=== PATIENT | female | born 1960 | race Caucasian/White ===

== ENCOUNTER 2018-02-28 01:24 | Outpatient (CLI) | payer BC, SELFPAY ==
--- NOTE | 2018-02-28 09:41 | DI.CT_ITS ---
SYMPTOMS/DIAGNOSIS: PRIMARY OSTEOARTHRITIS, M19.079, ARTHRITIS OF SUBTALAR JOINT LEFT ANKLE AND FOOT: The study was carried out according to the usual protocol. Soft tissue swelling is noted about the ankle. The mortise joint is well maintained with minimal degenerative changes. There is mild DJD involving the talonavicular and calcaneocuboid joints and metatarsal joints. Note is made of what appears to represent flexion deformities of the 2nd, 3rd and 4th toes. There is no evidence of a fracture or dislocation.
== END 2018-02-28 01:44 ==
PROVIDERS: PCP Family Medicine; Visit Provider Orthopaedic Surgery
DX: M19.072 Primary osteoarthritis, left ankle and foot (principal); M79.89 Other specified soft tissue disorders; M21.272 Flexion deformity, left ankle and toes
CPT/HCPCS: 73700

== ENCOUNTER 2018-11-08 12:19 | Outpatient (CLI) | payer BC, SELFPAY ==
[2018-11-08 12:57] LABS: HCT 42.1 % (36.0-46.0); HGB 13.9 g/dL (12.0-15.5); Mean Corpuscular Hemoglobin 32.1 pg (27.0-33.0); Mean Corpuscular Volume 97.2 fL (80-95); Mean Platelet Volume 10.3 fL (8.0-11.0); Platelet Count 275 x1000/uL (130-400); RBC 4.33 m/cumm (4.00-5.20); RBC Distribution Width 12.1 % (11.7-14.6)
[2018-11-08 13:41] LABS: ALT 86 U/L (12-78); AST 46 U/L (15-37); Albumin 4.2 g/dL (3.4-5.0); Alkaline Phosphatase 112 U/L (46-116); Anion Gap 11.4 mmol/L (3-11); BUN 10 mg/dL (7-18); Bilirubin, Total 0.5 mg/dL (0.2-1.0); CO2 25.6 mmol/L (21.0-32.0); Calcium 9.4 mg/dL (8.5-10.1); Chloride 103 mmol/L (98-107); Glucose 89 mg/dL (70-100); Potassium 4.1 mmol/L (3.5-5.1); Sodium 140 mmol/L (136-145); Total Protein 7.8 g/dL (6.4-8.2)
== END 2018-11-08 12:39 ==
PROVIDERS: PCP Family Medicine; Visit Provider Family Medicine
DX: K21.9 Gastro-esophageal reflux disease without esophagitis (principal); K76.0 Fatty (change of) liver, not elsewhere classified; Z01.818 Encounter for other preprocedural examination
CPT/HCPCS: 36415; 80053; 85027

== ENCOUNTER 2021-01-02 16:26 | Outpatient (REF) | payer MEDICAID, SELFPAY ==
[2021-01-02 19:35] LABS: Hemoglobin A1C 5.3 % (<5.7)
[2021-01-02 19:39] LABS: Calculated LDL 115 mg/dL (<100); Cholesterol 221 mg/dL (<200); HDL Cholesterol 89 mg/dL (40-60); Triglyceride 88 mg/dL (<150)
== END 2021-01-02 16:27 | disposition home or self-care (01) ==
LOC: LBN 16:26
PROVIDERS: PCP Nurse Practitioner Family; Visit Provider Nurse Practitioner Family
DX: Z13.220 Encounter for screening for lipoid disorders (principal); Z13.1 Encounter for screening for diabetes mellitus
CPT/HCPCS: 80061; 83036

== ENCOUNTER 2021-03-09 13:03 | Outpatient (REF) | payer MEDICAID, SELFPAY ==
--- OUTSIDE RECORDS SUMMARY | 2021-03-09 13:11 | XMS_ITS | Encounter Summary ---
:1960 Author Care Team Providers Name Role Phone Ozzie THORNTON Primary Care Provider [phone] Amanda Navarro MD General Surgeon [phone] Reason for Visit None recorded. Assessment and Plan 1. Gynecologic examination Normal pharmacy tech exam, essentially healthy wom an. Good diet, active job. No Pap needed this year. Mammo ordered. 2. Screening mammography ? MAMMO, screening, tomosynt hesis, bilateral - If indicated may do any of the following: ABUS R92.2, Z12.31. US Br east ABUS Bilat; = 08287 US Breast BILAT LIMITED; US Breast LT LIMITED; US Breast RT LIMITED 01393 MG Mammo ESTEFANI ADD VIEW BILAT = 43336 & 27120 (BIRADS Cat 0) MG Mammo Diagnostic Dig BILAT = 79947 MG Mammo ESTEFANI ADD VIEW LT = 39655 & 77859 (BIRADS Cat 0) MG Mammo ESTEFANI ADD VIEW RT = 52038 & 41199 (BIRADS Cat 0) MG Mammo Diagnostic Digital LT = 20294 MG Mammo Diagnostic Digital RT = 61492 US Breast BILAT COMPL ETE; US Breast LT COMPLETE; US Breast RT COMPLETE = 58892 Discussion Note: None recorded.Patient educational handouts: No information available. Plan of Care Reminders Provider Appointments e 30 on or around Kaley Daley 01/13/2022 YAW Saini ? e 30 01/15/2022 Kaley Rojas ae 3:00PM YAW Saini Lab None ? ? recorded. Referral None ? ? recorded. Procedures None ? ? recorded. Surgeries None ? ? recorded. Imaging MAMMO, 01/13/2021 [facility]iol[facility] gy Tomosynthesis, (Internal) Bilateral Medications Name Start Date ? ? lisinopril 10 mg tablet ? Take 1 tablet every day by oral route. venlafaxine 75 mg tablet ? Take 1 tablet every day by oral route. Medications Administered None recorded. Vitals Weight Blood Pressure 151.6 lbs 128/74 mm[Hg] Results Lab Results None recorded. Allergies Code Code System Name Reaction Severity Onset 855597 RxNorm IMODIUM A-D ? ? ? Iodinated ? ? ? Contrast Media Problems Name Status Onset Date Source ? Basal Cell Carcinoma of Face Active ? His tory Uterine Leiomyoma Active ? History Disorder of Hematopoietic Structure Active ? History Generalized Anxiety Disorder Active ? His tory Insomnia Active ? History Hypertensive Disorder Active ? History Esophagitis Active ? History Diaphragmatic Hernia Active ? History Disorder of Kidney And/or Ureter Active ? History Granuloma Annulare Active ? History Arthropathy Active ? History Malaise and Fatigue Active ? History Generalized Hyperhidrosis Active ? Histor y History of Psychiatric Disorder Active ? History Menopause Present Active ? History Procedures Date Name Performed by ? 02/24/2021 Colonoscopy Information not avai lable Notes: colon polyps, external hemorrh oids, mild diverticulosis. 12/07/2018 Orthopedic Surgery Information not avai lable Notes: Left foot sugery repeat 10/24/2017 Orthopedic Surgery Information not avai lable Notes: Left foot surgery 05/16/2000 Cholecystectomy Information not avai lable 05/16/1984 Tubal Ligation Information not avai lable 05/16/1969 Tonsillectomy Information not avai lable 01/13/2021 MAMMO, Screening, Tomosynthesis, [facility] Radiology (Internal) Bilateral [address] [place] [address] (Work Place) Vaccine List Vaccine Type COVID-19, mRNA, LNP-S, PF, 100 mcg/0.5 m L dose 09/06/2020 10/04/2020 Tdap 03/13/2013?0.5 mL Social History Tobacco Smoking Status Former Smoker Notes: Quit What type of diet are you REGULAR following? Do you have difficulty walking or N climbing stairs? Are you able to walk? YESWOREST Are you currently employed? Y Are you able to care for yourself? Y What is your code status? 0 Who is your employer? [employer] Is blood transfusion acceptable in Y an emergency? Are you currently sexually active N with anyone who has traveled (within the last 12 weeks) to a Zika-affected area? What is your relationship status? What is your level of alcohol Moderate Notes: Wine 6-8 glasses consumption? per week Have you been to an area known to N be high risk for COVID-19? Current Method of Control Natural methods Notes: Tubal Ligation Are you deaf or do you have serious N difficulty hearing? Do you or have you ever used any N other forms of tobacco or nicotine? Drug Use N Have you recently or are you N planning to travel to an area with Zika virus? Do you have difficulty dressing or N bathing? Are you blind or do you have N difficulty seeing? Do you have transportation N difficulties? Marital Status In the 14 days before symptom N onset, have you had close contact with a person who is under investigation for COVID-19 while that person was ill? Do you have difficulty doing N errands alone? Do you reside in or have you N traveled to an area where Ebola virus transmission is active? What was the date of your most 01/13/2021 recent tobacco screening? Do you have an advanced directive? Y Do you use any illicit or N recreational drugs? In the 14 days before symptom N onset, have you had close contact with a laboratory-confirmed COVID-19 while that case was ill? Which of your hands is dominant? Right Do you have difficulty N concentrating, remembering or making decisions? What is your level of caffeine Moderate Notes: 1 cup of coffee consumption? daily Have you recently traveled abroad? 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 Past Encounters 01/13/2021 Gynecologic Examination; Screening Mammo graphy Kaley Saini, PARKERM: [address] [place] [id number], Ph. 12/18/2020 Joint Pain; Enthesopathy; Abnormal Gait; Pain in Left Foot; Stiffness of Left Ankle; Stiffness of Joint of Left Foot Marzena Marquis, PT: [address] [facility] [facility] [address] [address], [address], [place] [address], Ph. History of Present Illness ? Annual Recycling Attendant Post-Menopausal Reported By: Patient Genitourinary symptoms: Menopausal Symptoms: no peter pausal symptoms, normal vaginal lubrication; occasional nigh t sweats. Vaginal Bleeding: history of menopause having occurred, no history of post menopausal bleeding. Urinary Symptoms: no hematuria, no incontinence, no nocturia, n o urinary frequency Breast symptoms: Breast: no breast lump, no n ipple discharge, no breast pain Psychological symptoms: Sexual Complaints: no sexual complaints. Psychological Symptoms: no depression, anx iety Review of Systems: ROS as noted in the HPI Review of Systems None recorded. Physical Exam ? Annual Recycling Attendant Exam Reported By: Patient Telesales Team Leader: Telesales Team Leader: offered and decli lyla Constitutional: General Appearance: healthy- appearing, well-nourished, well-developed Psychiatric: Orientation: to time, to gee ce, to person. Mood and Affect: active and alert, normal mood, norm al affect Skin: Appearance: no rashes, no le sions Neck: Neck: supple, no masses. Thy roid: no enlargement, non-tender Lungs: Respiratory Effort: no inter costal retractions, no accessory muscle usage. Auscultation: clear t o auscultation Cardiovascular: Auscultation: RRR, no murmur . Peripheral Vascular: no LLE edema, no RLE edema Abdomen: Auscultation/Inspection/Palp ation: normal bowel sounds, soft, no tenderness, no CVA tendernes s Breast: Inspection/Palpation: no ski n changes, no abnormal secretions, nipple appearance normal, no tenderness, no distinct masses Female Genitalia: Vulva: no masses, no atrophy , no lesions. Vagina: no tenderness. Cervix: grossly normal, no d ischarge, no cervical motion tenderness. Uterus: normal s ize, normal shape, midline, mobile, non-tender. Adnexa/Parametri a: no adnexal tenderness, no ovarian mass Lymph Nodes: Palpation: non tender subman dibular nodes
--- OUTSIDE RECORDS SUMMARY | 2021-03-09 13:11 | XMS_ITS | Encounter Summary ---
:1960 Author Care Team Providers Name Role Phone Ozzie THORNTON Primary Care Provider [phone] Amanda Navarro MD General Surgeon [phone] Reason for Visit diarrhea Here to consult on diarrhea. Assessment and Plan 1. Screening for malignant neopl asm of colon 60 female who is due for scree stephanie colonoscopy based on her history of a tubulovillous adenoma 4 years ago. We wi ll go ahead and set her up for this. We discussed the procedure in detail. We di scussed the risks of bleeding from biopsy sites, perforation of the colon, missing small lesions, amongst other things. She expressed understanding. She signed info rmed consent here in the office. We will get her scheduled for screening colonoscopy at her earliest convenience. 2. Diarrhea Patient is also had a signific ant change in bowel habits and has persistent diarrhea for an number of months now. We will go ahead and do colon mucosal biopsies throughout the colon at the time of her colonoscopy. We may find she has microscopic colitis, which can be treated with some oral medication. If not, we talked about adding fiber to her diet and possibly us ing cholestyramine. We will see what the pathology shows. Thank you for the consu ltation. Discussion Note: None recorded.Patient educational handouts: No information available. Plan of Care Reminders Provider Appointments e 30 on or around Kaley Daley 01/13/2022 YAW Saini ? e 30 01/15/2022 Kaley Rojas ae 3:00PM YAW Saini Lab None ? ? recorded. Referral None ? ? recorded. Procedures None ? ? recorded. Surgeries None ? ? recorded. Imaging None ? ? recorded. Medications Name Start Date ? ? lisinopril 10 mg tablet ? Take 1 tablet every day by oral route. venlafaxine 75 mg tablet ? Take 1 tablet every day by oral route. Medications Administered None recorded. Vitals Height Weight BMI Blood Pressure 4 ft 11.5 in 151 lbs 30 kg/m2 110/82 mm[Hg] Results Lab Results None recorded. Allergies Code Code System Name Reaction Severity Onset 923566 RxNorm IMODIUM A-D ? ? ? Iodinated [...] not avai lable 01/13/2021 MAMMO, Screening, Tomosynthesis, [facility] Radiology (Internal) Bilateral [address] [place] [address] (Work Place) Vaccine List Vaccine Type COVID-19, [...] to N be high risk for COVID-19? Are you deaf or do you have serious N difficulty hearing? Current Method of Control Natural methods Notes: Tubal Ligation Do you or have you ever used any N other forms of tobacco or nicotine? Drug Use N Have you recently or are you N planning to travel to an area with Zika virus? Do you have difficulty dressing or N bathing? Are you blind or do you have N difficulty seeing? Do you have transportation N difficulties? Do you have difficulty doing N errands alone? In the 14 days before symptom N onset, have you had close contact with a person who is under investigation for COVID-19 while that person was ill? Marital Status What was the date of your most 01/13/2021 recent tobacco screening? Do you reside in or have you N traveled to an area where Ebola virus transmission is active? Do you have an advanced directive? Y [...] traveled abroad? 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 Past Encounters 02/12/2021 Screening for Malignant Neoplasm of [place] n; Diarrhea Amanda Navarro MD: [address] [place] [address], Ph. 01/13/2021 Gynecologic Examination; Screening Mammo devy Kaley Saini CNM: [address] [place] [address], Ph. History of Present Illness Note: Patient is a 60-year-old woman who is sent over by her primary care provider. She used to have 1 formed bowel movement most mornings. About 4 months ago she had fairly rapid onset of diarrhea. Herstools have become mostly liquid. She sometimes goes as much as 4 or 5 times in a day. Initially the diarrhea typically occurred after eating. Now it is less predictable. She has urgency and has had some episodes of incontinence. She has had some time where the symptoms have improved a bit but they definitely persist. She does have a bit of nausea but no significant vomiting. She denies abdominal pain. She denies loss of appetite or unintentional weight loss. She denies blood in the stool on the toilet paper when she wipes. Her last colonoscopy was in 2017. At the time she had a tubulovillous adenoma and she is indicated for repeat now. Of note she has tried to use Imodium but had a pretty significant systemic reaction on 2 separate occasions giving her whole body aches, chest pain, weakness, fatigue, and chills. She did have stool studies done by her primary care provider. These were all negative.Review of Systems: ROS as noted in the HPI Review of Systems None recorded. Physical Exam ? [facility] General Surgery Exam Reported By: Patient Constitutional: General Appearance: healthy- appearing, overweight. Level of Distress: no acute distress. Ambulation: ambulating normally Head: Head: normocephalic, atrauma tic Neck: Neck: supple, no masses Cardiovascular: Heart Auscultation: regular rate and rhythm, no murmurs Lungs: Respiratory effort: no dyspn ea, no use of accessory muscles. Auscultation: breath sounds normal, good air movement, clear to auscultation, no wheezing, n o rhonchi Abdomen: Inspection and Palpation: so ft, non-distended, no tenderness Musculoskeletal:: Extremities: no edema. Joint s, Bones, and Muscles: movement of all extremities Neurologic: Cranial Nerves: grossly inta ct Psychiatric: Mental Status: active and al ert, normal mood, normal affect
[2021-03-11 14:28] LABS: COVID-19 RT-PCR UVMMC Result Negative (Negative)
== END 2021-03-09 13:04 | disposition home or self-care (01) ==
LOC: LBN 13:03
PROVIDERS: PCP Nurse Practitioner Family; Visit Provider Physician Assistant
DX: Z20.822 Contact with and (suspected) exposure to COVID-19 (principal)
CPT/HCPCS: U0003

== ENCOUNTER 2022-12-08 03:40 | Outpatient (CLI) | payer MEDICAID, SELFPAY ==
[2022-12-08 09:11] LABS: HCT 39.4 % (36.0-46.0); HGB 12.9 g/dL (11.2-15.7); MCH 32.3 pg (27.0-33.0); MCHC 32.7 % (32.0-36.0); MCV 99 fL (80-95); MPV 9.9 fL (8.0-11.0); Platelet Count 241 10^3/uL (130-400); RBC 3.99 10^6/uL (3.93-5.22); RDW 12.8 % (11.7-14.6); RDW-SD 46.8 fL; WBC 6.76 10^3/uL (4.4-10.8)
[2022-12-08 09:52] LABS: ALT 83 U/L (14-59); AST 75 U/L (15-37); Albumin 4.2 g/dL (3.4-5.0); Alkaline Phosphatase 106 U/L (46-116); Anion Gap 9.9 mmol/L (3-11); BUN 16 mg/dL (7-18); Bilirubin, Total 0.5 mg/dL (0.2-1.0); CO2 27.1 mmol/L (21.0-32.0); CREATININE 0.8 mg/dL (0.55-1.02); Calcium 9.5 mg/dL (8.5-10.1); Chloride 102 mmol/L (98-107); Estimated GFR 83.78 (mL/min/1.73m2); Glucose 164 mg/dL (74-106); NT-proBNP 114 pg/mL (<300); Potassium 4.3 mmol/L (3.5-5.1); Sodium 139 mmol/L (136-145); Total Protein 8.1 g/dL (6.4-8.2)
[2022-12-08 19:45] LABS: Prolactin 7.4 ng/mL (See Note)
[2022-12-09 18:02] LABS: Adrenocorticotropic Hormone, P 5.8 pg/mL
[2022-12-09 22:29] LABS: Growth Hormone 0.07 ng/mL
[2022-12-17 17:53] LABS: Dexamethasone 238 ng/dL
== END 2022-12-08 03:41 | disposition home or self-care (01) ==
LOC: LOS 03:43
PROVIDERS: PCP Nurse Practitioner Family; Visit Provider Nurse Practitioner Family
DX: R29.2 Abnormal reflex (principal)
CPT/HCPCS: 36415; 80053; 80299; 82533; 85027; 82024; 83003; 83880; 84146

== ENCOUNTER 2022-12-11 11:31 | Outpatient (REF) | payer MEDICAID, SELFPAY ==
[2022-12-14 20:05] LABS: Cortisol, U 18 mcg/24 h (3.5-45); Urine Volume 2400 mL
== END 2022-12-11 11:32 | disposition home or self-care (01) ==
LOC: LBN 11:31
PROVIDERS: PCP Nurse Practitioner Family; Visit Provider Nurse Practitioner Family
DX: R29.818 Other symptoms and signs involving the nervous system (principal); R63.5 Abnormal weight gain
CPT/HCPCS: 81050; 82530; 83789

== ENCOUNTER 2022-12-21 02:54 | Outpatient (CLI) | payer MEDICAID, SELFPAY ==
--- NOTE | 2022-12-21 07:53 | DI.CT_ITS ---
Exam(s) CT ABDOMEN PELVIS WO EXAM: CT ABDOMEN PELVIS WO CLINICAL HISTORY: ? liver disease or ascites,and distension,r14.0. TECHNIQUE: Imaging Protocol: Axial computed tomography images with coronal and sagittal reformatted images were created and reviewed. No IV contrast was given due to patient's stated history of contrast allergy. Oral: yes / COMPARISON: No exams were available for comparison FINDINGS: ABDOMEN: Lung Bases: Normal where visualized. Liver: Mildly enlarged, 17 cm in length. Diffusely decreased attenuation consistent with hepatic mode rate steatosis. No definite nodularity of the liver edge. 6.3 centimeter cyst mid right lobe of the l iver. Other smaller low-density lesions are not well characterized. No varices visible. Gallbladder and biliary tract: Status post cholecystectomy. No radiodense calculus or dilation. Pancreas: Normal density, no abnormal calcifications or inflammatory process. Spleen: Normal. Kidneys: Normal size, contour and axis. No radiodense stones or obstructive uropathy. No masses seen. Adrenal glands: No masses seen. Lymph nodes: Within normal limits. Abdominal Aorta: Abdominal portion non-dilated. PELVIS: Bladder: Nearly empty. Bowel: No obstruction or bowel wall thickening. Peritoneal cavity: No ascites, collection or mesenteric inflammatory response. Reproductive organs: Within normal limits. Bones: Within normal limits. IMPRESSION: Mildly enlarged liver with hepatic steatosis. Large liver cyst. Other smaller low-density liver lesions are not well characterized on this noncontr ast examination. Ultrasound could be performed for further evaluation. RADIATION DOSE DELIVERED: 869.95mGy.cm Total DLP DATA REPOSITORY: All CT scans at this facility are submitted to the National Radiology Data Registry (NRDR) Dose Index Registry (DIR) with the [employer] (ACR). RADIATION OPTIMIZATION: All CT scans at this facility use at least one of these dose optimization te chniques: automated exposure control; mA and/or kV adjustment per patient size (includes targeted exa ms where dose is matched to clinical indication); or iterative reconstruction.
[2022-12-21] MEDS: Barium Sulfate 2% W/V-Berry Smoothie 450 ML BTL PO (15:35)
== END 2022-12-21 03:14 ==
LOC: DI 02:54
PROVIDERS: PCP Nurse Practitioner Family; Visit Provider Family Medicine
DX: K76.0 Fatty (change of) liver, not elsewhere classified (principal); R93.2 Abnormal findings on diagnostic imaging of liver and biliary tract
CPT/HCPCS: 74176

== ENCOUNTER → 2022-12-24 00:52 | Outpatient (CLI) | payer MEDICAID, SELFPAY ==
--- NOTE | 2022-12-24 07:45 | DI.US_ITS ---
Exam(s) US ABDOMEN LIMITED EXAM: US ABDOMEN LIMITED CLINICAL HISTORY: Recent CT for liver lesions,K76.9, ABNL CT TECHNIQUE: Ultrasound abdomen performed using standard protocol. COMPARISON: CT CT ABDOMEN PELVIS WO from 12/21/2022 FINDINGS: LIVER: Mildly enlarged. Increased echogenicity throughout consistent with moderate hepatic steatosis. Multiple liver cysts are identified. No solid masses are seen. Largest cyst measures 7.8 cm in gre atest dimension. GALLBLADDER: Status post cholecystectomy. BILIARY SYSTEM: No intrahepatic or extrahepatic biliary ductal dilation. RIGHT KIDNEY: Normal size. No evidence of renal calculi. No evidence of hydronephrosis. No suspicious renal mass. No cyst identified. PANCREAS: Normal where visualized. ABDOMINAL AORTA AND IVC: Visualized portions normal caliber. ASCITES: None seen. IMPRESSION: Liver cysts. No suspicious masses. DATA REPOSITORY:
== END ==
PROVIDERS: PCP Nurse Practitioner Family; Visit Provider Nurse Practitioner Family
DX: Q44.6 Cystic disease of liver (principal)
CPT/HCPCS: 76705

== ENCOUNTER 2022-12-24 16:49 | Outpatient (CLI) | payer MEDICAID, SELFPAY ==
[2022-12-24 19:59] LABS: Parathyroid Hormone,Intact 27 pg/mL (19-88)
== END 2022-12-24 16:50 | disposition home or self-care (01) ==
LOC: LBO 16:49
PROVIDERS: PCP Nurse Practitioner Family; Visit Provider Nurse Practitioner Family
DX: R63.5 Abnormal weight gain (principal)
CPT/HCPCS: 36415; 83970

== ENCOUNTER → 2023-02-10 03:14 | Outpatient (CLI) | payer MEDICAID, SELFPAY ==
--- NOTE | 2023-02-10 | DI.DEXA_ITS ---
Exam(s) XR DEXA BONE DENSITY W/WO SANDI EXAM: XR DEXA BONE DENSITY W/WO SANDI CLINICAL HISTORY: HYPERCORTISOLISM,E24.9,AT RISK FOR OSTEOPOROSIS TECHNIQUE: Routine DEXA evaluation of the lumbar spine, hip, or forearm. COMPARISON: No exams were available for comparison FINDINGS: Performed on a Hologic unit. Lateral image: No compression fracture evident. Lumbar Spine total T-score: 1.0 Hip total T-score:-1.1 Independent reading at the level of the femoral neck yields T-score of -1.6 Forearm total T-score: 1.1 IMPRESSION: Bone mineral density measures in the osteopenia range. Fracture risk is moderate. Note: Any spine fracture indicates 5x risk for subsequent spine fracture and 2x risk for subsequent h ip fracture. World Health Organization criteria for BMD interpretation classify patients: Normal...... T- Score at or above -1.0 Osteopenic... T- Score between -1.0 and -2.5 Osteoporosis... T-Score at or below -2.5
== END ==
PROVIDERS: PCP Nurse Practitioner Family; Visit Provider Student in an Organized Health Care Education/Training Program
DX: Z13.820 Encounter for screening for osteoporosis (principal); E24.9 Cushing's syndrome, unspecified; M81.0 Age-related osteoporosis without current pathological fracture
CPT/HCPCS: 77080

== ENCOUNTER 2023-02-11 03:13 | Outpatient (CLI) | payer MEDICAID, SELFPAY ==
[2023-02-11 12:18] LABS: Hemoglobin A1C 5.5 % (<5.7)
[2023-02-14 07:54] LABS: DHEA Sulfate 65 ug/dL (30-182)
[2023-02-14 12:53] LABS: Adrenocorticotropic Hormone, P 16 pg/mL
[2023-02-15 20:02] LABS: Testosterone, Total 13 ng/dL (8-60)
== END 2023-02-11 03:14 | disposition home or self-care (01) ==
LOC: LBO 03:13
PROVIDERS: PCP Nurse Practitioner Family; Visit Provider Student in an Organized Health Care Education/Training Program
DX: E24.9 Cushing's syndrome, unspecified (principal)
CPT/HCPCS: 36415; 82627; 84403; 82024; 83036

== ENCOUNTER 2023-02-11 12:09 | Outpatient (REF) | payer MEDICAID, SELFPAY ==
[2023-02-11 14:11] LABS: Creatinine,24hr Ur 0.89 g/24hr (0.60-1.80); Total Volume 2400 ml
[2023-02-16 00:35] LABS: Cortisol, U 17 mcg/24 h (3.5-45); Urine Volume 2400 mL
[2023-02-16 01:59] LABS: Midnight Cortisol 298 ng/dL (<100)
== END 2023-02-11 12:10 | disposition home or self-care (01) ==
LOC: LBN 12:09
PROVIDERS: PCP Nurse Practitioner Family; Visit Provider Student in an Organized Health Care Education/Training Program
DX: E24.9 Cushing's syndrome, unspecified (principal)
CPT/HCPCS: 81050; 82530; 82570; 83789

== ENCOUNTER 2023-02-17 12:00 | Outpatient (REF) | payer MEDICAID, SELFPAY ==
[2023-02-22 23:36] LABS: Midnight Cortisol 159 ng/dL (<100)
== END 2023-02-17 12:01 | disposition home or self-care (01) ==
LOC: LBN 12:00
PROVIDERS: PCP Nurse Practitioner Family; Visit Provider Student in an Organized Health Care Education/Training Program
DX: E24.9 Cushing's syndrome, unspecified (principal)
CPT/HCPCS: 82530

== ENCOUNTER → 2023-03-31 03:21 | Outpatient (CLI) | payer MEDICAID, SELFPAY ==
--- NOTE | 2023-03-31 | DI.MRI_ITS ---
Exam(s) MR BRAIN PITUITARY WO/W EXAM: MR BRAIN PITUITARY WO/W CLINICAL HISTORY: HYPERCORTISOLISM,E24.9,? CUSHINGS DISEASE,HIGH DOSE SUPPRESSION DEXAMETHASO TECHNIQUE: Multiplanar multisequence MRI of the brain and pituitary gland was performed. CONTRAST MATERIAL: IV Contrast: 15 mL of Dotarem contrast administered. COMPARISON: No exams were available for comparison Findings: VENTRICLES AND EXTRA AXIAL SPACES: Normal in size and morphology for the patient's age. HEMORRHAGE: None. CEREBRAL PARENCHYMA: No focus of restricted diffusion to suggest acute infarct. No space-occupying le ginger identified. Mild atrophy. No abnormal white matter lesions. MIDLINE SHIFT: None. BRAINSTEM/CEREBELLUM: Normal. CALVARIUM: Normal. ENHANCEMENT: No suspicious enhancement identified. VISUALIZED PARANASAL SINUSES/MASTOIDS: Clear. OTHER FINDINGS: None. PITUITARY: Pituitary stalk is midline. The gland demonstrates homogenous signal intensity with homogeneous enhan cement. No evidence of macroadenoma or microadenoma. The optic chiasm is unremarkable. Impression: Unremarkable MRI of the brain and pituitary gland. DATA REPOSITORY:
[2023-03-31 15:10] LABS: CREATININE 0.8 mg/dL (0.55-1.02); Estimated GFR 83.78 (mL/min/1.73m2)
[2023-03-31] MEDS: Gadoterate meglumine 20 ML SYRINGE IVP (15:25)
[2023-03-31] MEDS: Normal Saline Flush 10 ML SYR IJ (15:27)
== END ==
PROVIDERS: PCP Nurse Practitioner Family; Visit Provider Student in an Organized Health Care Education/Training Program
DX: E24.9 Cushing's syndrome, unspecified (principal)
CPT/HCPCS: 70553; 82565

== ENCOUNTER 2024-02-09 03:10 | Outpatient (CLI) | payer MEDICAID, SELFPAY ==
[2024-02-09] MEDS: Levalbuterol HFA 15 GM INH 4 PUFF IH (11:19)
[2024-02-09] MEDS: Inhaler, Assist Device 1 EACH MC (11:19)
--- NOTE | 2024-02-14 16:20 | W.PFT ---
Date of service: 02/09/24 Time of Service: 10:05 Pulmonary Function Test Result Indications: Dyspnea Interpretation Spirometry: There is no airflow limitation. There is no bronchodilator response. Lung Volumes: There is possible air trapping Diffusion Capacity: Normal diffusion Airway Pressure: Normal airways resistance Impression There is air trapping which may represent asthma or emphysema in the correct clinical context. Clinical Correlation therefore is recommended.
== END 2024-02-09 03:11 | disposition home or self-care (01) ==
LOC: RT 03:10
PROVIDERS: PCP Nurse Practitioner Family; Visit Provider Nurse Practitioner Family
DX: R06.00 Dyspnea, unspecified (principal); R06.02 Shortness of breath
CPT/HCPCS: 94060; 94726; 94729